=== PATIENT | male | born 1995 | race African-American/Black ===

== ENCOUNTER 2021-06-03 20:04 | Emergency (ER) | payer OTHER ==
[2021-06-03 20:14] VITALS: BP 141/80; PULSE 65; TEMP 98.3; BMI 20.7
== END 2021-06-04 00:36 | disposition home or self-care (01) ==
LOC: JERFT 20:04 → JER 20:04
DX: F19.90 Other psychoactive substance use, unspecified, uncomplicated (principal)
CPT/HCPCS: 99282-25

== ENCOUNTER 2021-06-04 02:23 | Inpatient (IN) | payer OTHER ==
[2021-06-04 04:35] VITALS: BMI 20.7
[2021-06-04] MEDS ORDERED: ONDANSETRON *ODT* 4 MG TABLET SL PRN (05:24)
[2021-06-04] MEDS ORDERED: DICYCLOMINE HCL 10 MG CAPSULE PO PRN (05:24)
[2021-06-04] MEDS ORDERED: MAGNESIUM HYDROX 2400MG/30ML ORAL SUSPENSION 30 ML CUP PO PRN (05:24)
[2021-06-04] MEDS ORDERED: MAGNESIUM CITRATE 300 ML BOTTLE PO PRN (05:24)
[2021-06-04] MEDS ORDERED: LOPERAMIDE HCL 2 MG CAPSULE PO PRN (05:24)
[2021-06-04] MEDS ORDERED: ACETAMINOPHEN 325 MG TABLET (FP) PO PRN ×2 (05:24)
[2021-06-04] MEDS ORDERED: MAG HYDROX/AL HYDROX/SIMETH 30 ML UNIT-DOSE CUP PO PRN (05:24)
[2021-06-04] MEDS ORDERED: BENZOCAINE/MENTHOL (CHLORASEPTIC ) LOZENGE MM PRN (05:24)
[2021-06-04] MEDS ORDERED: BISMUTH SUBSALICYLATE 524 MG/30 ML PO PRN (05:24)
[2021-06-04] MEDS ORDERED: NICOTINE 10 MG CARTRIDGE (INHALER) IH PRN (05:24)
[2021-06-04] MEDS ORDERED: IBUPROFEN 400 MG TABLET (FP) PO PRN (05:24)
[2021-06-04] MEDS ORDERED: METHOCARBAMOL 500 MG TABLET PO PRN (05:24)
[2021-06-04] MEDS ORDERED: hydrOXYzine PAMOATE 25 MG CAPSULE (FP) PO SCH (06:00)
[2021-06-04] MEDS ORDERED: diazePAM 5 MG TABLET ONE ×2 (07:22→11:21)
[2021-06-04] MEDS: diazePAM 5 MG TABLET PO SCH ×4 (07:26→22:34)
[2021-06-04] MEDS ORDERED: cloNIDine HCL 0.1 MG TABLET PO ONE ×2 (08:00→17:25)
[2021-06-04] MEDS: PRENATAL VITAMINS W/ FOLIC ACID TABLET (FP) PO SCH (10:27)
[2021-06-04] MEDS: diazePAM 5 MG TABLET PO PRN (18:00)
[2021-06-04] MEDS ORDERED: MELATONIN 5 MG TABLETS PO SCH (22:00)
[2021-06-04] MEDS: THIAMINE HCL 100 MG TABLET (FP) PO SCH (22:34)
[2021-06-05] MEDS: diazePAM 5 MG TABLET PO SCH ×3 (06:01→22:26)
[2021-06-05] MEDS: PRENATAL VITAMINS W/ FOLIC ACID TABLET (FP) PO SCH (10:17)
[2021-06-05] MEDS: diazePAM 5 MG TABLET PO PRN ×2 (10:17→17:23)
[2021-06-05] MEDS ORDERED: FLU VACC QS2021-22(6MOS UP)/PF 60 MCG/0.5 ML SYRINGE IM ONE (12:00)
[2021-06-05 12:34] LABS: HEMATOCRIT 41.1 % (35.4-49); HEMOGLOBIN 13.4 GM/dL (11.7-16.9); MCHC 32.6 g/dl (32.0-35.9); MEAN CELL VOLUME 89.1 fl (80-96); MEAN PLT VOLUME 9.6 fl (7.5-11.1); PLATELET COUNT 147 10^3/uL (134-434); RBC 4.62 M/mm3 (4.00-5.60); RDW 14.5 % (11.9-15.9); WHITE BLOOD COUNT 2.9 K/mm3 (4.0-10.0)
[2021-06-05 13:08] LABS: ALBUMIN 3.7 g/dl (3.4-5.0); CALCIUM 8.8 mg/dL (8.5-10.1)
[2021-06-05 13:09] LABS: BLOOD UREA NITROGEN 8.5 mg/dL (7-18)
[2021-06-05 13:11] LABS: CREATININE 0.9 mg/dL (0.55-1.3)
[2021-06-05 13:13] LABS: BILIRUBIN,TOTAL 1.8 mg/dL (0.2-1)
[2021-06-05] MEDS: amLODIPine BESYLATE 5 MG TABLET (FP) PO SCH (13:24)
[2021-06-05] MEDS: QUEtiapine FUMARATE 50 MG TABLET PO SCH (22:26)
[2021-06-05] MEDS: THIAMINE HCL 100 MG TABLET (FP) PO SCH (22:26)
[2021-06-06] MEDS: diazePAM 5 MG TABLET PO SCH ×2 (06:06→18:04)
[2021-06-06] MEDS: amLODIPine BESYLATE 5 MG TABLET (FP) PO SCH (10:32)
[2021-06-06] MEDS: PRENATAL VITAMINS W/ FOLIC ACID TABLET (FP) PO SCH (10:33)
[2021-06-06] MEDS: diazePAM 5 MG TABLET PO PRN (22:26)
[2021-06-06] MEDS: QUEtiapine FUMARATE 50 MG TABLET PO SCH (22:26)
[2021-06-06] MEDS: THIAMINE HCL 100 MG TABLET (FP) PO SCH (22:26)
[2021-06-07 00:06] LABS: SARS-CoV-2 NAA Not Detected (Not Detected)
[2021-06-07] MEDS ORDERED: diazePAM 5 MG TABLET PO ONE (06:00)
[2021-06-07 09:13] VITALS: BP 138/72; PULSE 59; TEMP 97.3
[2021-06-07] MEDS: PRENATAL VITAMINS W/ FOLIC ACID TABLET (FP) PO SCH (10:07)
[2021-06-07] MEDS: amLODIPine BESYLATE 5 MG TABLET (FP) PO SCH (10:07)
== END 2021-06-07 10:12 | disposition home or self-care (01) | DRG 775 ==
LOC: YASAS 02:23 → Y6N 10:25
PROVIDERS: ADMIT Allergy & Immunology; ATTEND Allergy & Immunology
PROC: HZ2ZZZZ Detoxification Services for Substance Abuse Treatment (ICD-10-PCS; principal; 2021-06-04)
DX: F10.230 Alcohol dependence with withdrawal, uncomplicated (principal); F13.230 Sedative, hypnotic or anxiolytic dependence with withdrawal, uncomplicated; F12.20 Cannabis dependence, uncomplicated; F17.210 Nicotine dependence, cigarettes, uncomplicated; F20.9 Schizophrenia, unspecified; F22 Delusional disorders; F41.9 Anxiety disorder, unspecified; F32.A Depression, unspecified
CPT/HCPCS: 36415; 80053; 85027; 86780; 90686; 93005; 93010; C9803-CS; G0008; J0735; U0003; U0005